=== PATIENT | male | born 1970 | race Caucasian/White ===

== ENCOUNTER → 2016-04-03 | Outpatient (CLI) | payer MEDICARE ==
[~2016-04-03] MED LIST: FLEXERIL10 MG PO; OMEPRAZOLE20 MG PO; PERCOGESIC1 TAB PO
[2016-04-03 13:35] LABS: HEMOGLOBIN 16.2 g/dL (14.1-18.0); LYMPH # 1.5 K/mm3 (0.7-4.5); LYMPH % 23.6 % (10-50)
[2016-04-03 15:05] LABS: BUN 12 mg/dL (7-18); PROSTATE-SPECIFIC AG SCREEEN 0.3 ng/mL (0.0-4.0)
[2016-04-03 15:11] LABS: GFR (ESTIMATED) 72 ML/MIN (>60)
[2016-04-04 09:38] LABS: HBsAg Screen Negative (Negative); Hep A Ab, IgM Negative (Negative); Hep B Core Ab, IgM Negative (Negative); Hep C Virus Ab <0.1 (0.0-0.9)
== END ==
LOC: LAB 12:33
PROVIDERS: Nurse Practitioner Family
DX: I10 Essential (primary) hypertension (principal); Z00.00 Encounter for general adult medical examination without abnormal findings; Z80.9 Family history of malignant neoplasm, unspecified
CPT/HCPCS: G0103